=== PATIENT | female | born 1970 | race Caucasian/White ===

== ENCOUNTER 2017-09-17 20:34 | Emergency (ER) | payer MEDICAID ==
[2017-09-17] MEDS ORDERED: LIDOCAINE 2% JELLY 30 ML TOP (21:31)
== END 2017-09-17 21:52 | disposition home or self-care (01) ==
LOC: FTE 20:34
DX: K62.89 Other specified diseases of anus and rectum (principal)
CPT/HCPCS: 99283; Z7502